=== PATIENT | female | born 1995 | race Caucasian/White ===

== ENCOUNTER → 2021-09-17 00:37 | Outpatient (CLI) | payer OTHER, SELFPAY ==
[2021-09-17 18:00] LABS: SARS-CoV-2 RNA PCR Negative (Negative)
== END ==
PROVIDERS: Visit Provider Surgery Plastic and Reconstructive Surgery
DX: Z01.812 Encounter for preprocedural laboratory examination (principal); Z20.822 Contact with and (suspected) exposure to COVID-19
CPT/HCPCS: C9803; U0003; U0005

== ENCOUNTER 2021-09-17 07:38 | Outpatient (CLI) | payer SELFPAY ==
--- NOTE | 2021-09-17 08:24 | ECG_ITS ---
Measurements Intervals [place] Rate: 54 P: 23 [place]: 139 QRS: 55 QRSD: 87 T: 42 QT: 424 QTc: 405 Interpretive Statements SINUS BRADYCARDIA WITH MARKED SINUS ARRHYTHMIA BORDERLINE ECG Electronically Signed On 09-17-2021 12:07:53 [employer] by Beto Bronson D.O.
[2021-09-17 08:47] LABS: Hematocrit 39.3 % (37.0-47.0); Hemoglobin 12.9 g/dL (12.0-15.0)
== END 2021-09-17 07:39 | disposition home or self-care (01) ==
LOC: ANHLAB 07:39
PROVIDERS: Visit Provider Anesthesiology
DX: Z01.818 Encounter for other preprocedural examination (principal); N64.82 Hypoplasia of breast
CPT/HCPCS: 36415; 85014; 85018; 93005

== ENCOUNTER 2024-01-21 15:09 | Outpatient (CLI) | payer OTHER, SELFPAY ==
--- NOTE | 2024-01-21 15:30 | ECG_ITS ---
SEE SCANNED COPY FOR CONFIRMED REPORT MTDD
[2024-01-21 15:47] LABS: Hematocrit 38.7 % (37.0-47.0); Hemoglobin 12.5 g/dL (12.0-15.0)
== END 2024-01-21 15:10 | disposition home or self-care (01) ==
LOC: ANHSURGERY 15:15
PROVIDERS: Anesthesiology; Visit Provider Surgery Plastic and Reconstructive Surgery
DX: Z01.818 Encounter for other preprocedural examination (principal); Z41.1 Encounter for cosmetic surgery
CPT/HCPCS: 36415; 85014; 85018; 93005

== ENCOUNTER 2024-01-22 00:54 | Day surgery (SDC) | payer OTHER, SELFPAY ==
[2024-01-10 12:25] VITALS: BMI 25.0
--- NOTE | 2024-01-10 12:30 | PC.NURSE ---
Report to the Outpatient Waiting Room, entrance under the green pavilion located off [facility], at time 6:00 on date 01/22/24. Planned Procedure Time: 7:30. Time changes happen often and if your time is changed the preop area will call you the afternoon before. - You and your visitor will be asked to self-screen and do not enter if you have any COVID symptoms. - A mask is optional within the hospital at this time. Patients may have clear liquids (water, carbonated beverages, clear teas, apple juice) until 3 hours prior to surgery with a maximum of 20 ounces. - No food from midnight until time of surgery Take the following medications with a SIP of water the morning of surgery: PROZAC DO NOT STOP ANY OF YOUR OTHER PRESCRIPTION MEDICATIONS PRIOR TO SURGERY ?EXCEPT THE FOLLOWING Medications to discontinue per physician: VITAMINS Date to take last dose: 01/18/24 Please no make-up, nail montserratian, hairspray, perfume, deodorant, or body powder the day of surgery. No jewelry (including any body piercings) or valuables the day of surgery, leave them at home. Please take a shower or bath the night before, or the morning of, surgery with an antibacterial soap. Wear comfortable, loose fitting clothing. - Jewelry must be removed prior to entering the operating room. Rings and piercings that are not removed may be cut off. - The hospital will not accept responsibility for valuables. - Please leave all valuables, including medications, at home the day of surgery. If you are going home after surgery, a licensed rivet driver must drive you home. - NO public transportation without another adult if you receive anesthesia. - We recommend that an adult stay with you for 24 hours following discharge. - We also recommend that you do not drive, make important decision, drink alcoholic beverages, or take any drugs that were not prescribed by your health care provider for at least 24 hours after your discharge time. Follow any additional instructions given to you from your surgeon. If you or anyone in your household have experienced Covid symptoms in the past week, please notify your surgeon or the nurse liaison at the phone number below for possible testing. Telephone instructions given to PT - TITUS and asked if any additional questions and then verbalized understanding. Patient advised to call surgeon office or pre surgery nurse liaison [phone] if any additional questions.
[2024-01-22] VITALS (11 sets, daily range): BP systolic 102–130; BP diastolic 56–79; PULSE 75–106; RESP 15–19; TEMP 36.2–36.4; O2SAT 96–100
[2024-01-22] MEDS: LACTATED RINGERS 1,000 ML 30 ML IV CONT ×2 (06:20→13:09)
[2024-01-22 06:31] LABS: Urine Cotinine NEGATIVE
--- NOTE | 2024-01-22 07:17 | WPDHPUPDATE1 ---
History and Physical Update Update Date/Time: 01/22/24 07:17 History and Physical has been reviewed, including an updated exam of the patient. There are NO changes in the patient's condition. Risks, benefits, and alternatives have been discussed and questions answered. Patient agrees to proceed with procedure.
--- NOTE | 2024-01-22 07:17 | W.PM.PROC2 ---
Procedure Note - Detailed Date of Procedure 01/22/24 Pre-op Diagnosis Micromastia, Skin Laxity Post-op Diagnosis Same Procedure Performed 1. Bilateral augmentation mammaplasty 2. Suction lipectomy lateral breast / chest 3. Progressive tension abdominoplasty with suction lipectomy Surgeon Fredi Watson MD Anesthesia General Findings Bilateral Rohini Diehlira SoftTouch Implants Right - REF# [id number] SN [id number] Left - REF# [id number] SN [id number] Lipoaspirate: 3,100 cc Tissue removed: 1,528 grams Description of Procedure They are here today for the above procedures. Previously and again today the risks, benefits, alternatives were discussed in extensive detail. I wanted them to be very realistic about the risks involved as well as expectations. We discussed aftercare and what to monitor for. I was very upfront about the risks of wound breakdown leading to loss of skin, open wounds, and need for additional procedures with permanent abdominal deformity. We discussed DVT/PE risks and management. Made sure answered all of their questions to their satisfaction today and consent was obtained. They were marked in the preoperative holding area with their verification. The patient was taken to the operating room. Anesthesia was provided by anesthesiology. A Haywood catheter was started. Placed prone on the operating room table with care taken to protect from injury. Prepped and draped in a standard sterile fashion. A surgical time-out was taken. Stab incisions were made and tumescent solution was infiltrated. Once adequate time was allowed for hemostasis a 5mm basket and 3mm multi hole cannula were utilized to complete suction lipectomy based on S.A.F.E. technique in multiple planes and passes. Suction lipectomy continued to result based on pre-operative planning, intra-operative observation, and rolling pinch test which were in full agreement. Patient was then placed supine with care taken to protect from injury. Lateral chest wall / breast suction lipectomy She was prepped and draped in a standard sterile fashion. Stab incisions were made and tumescent solution was infiltrated. Once adequate time was allowed for hemostasis a 5mm basket and 3mm multi hole cannula were utilized to complete suction lipectomy based on S.A.F.E. technique in multiple planes and passes of lateral chest / breast. Suction lipectomy continued to result based on pre-operative planning, intra-operative observation, and rolling pinch test which were in full agreement. Breast Tegaderm nipple Wiley were placed. A 15 blade used to make an incision along the inframammary fold. Dissection was continued at 45 degree angle until the chest wall as identified. I incised the pectoralis major along its inferior border and completely released the inferior border leaving the medial border intact. I created a subpectoral pocket in the appropriate dimensions based on our preoperative planning for the implant. I then copiously irrigated with saline solution and verified a strict hemostasis. Next the use a triple antibiotic and Betadine containing solution to irrigate the pocket. I washed my gloves with the triple antibiotic and Betadine solution. We washed the implant immediately upon opening it with this solution and only opened it when we needed it. I used implant funnel and no-touch technique. The implant was introduced into the pocket using the funnel. Having verified positioning of the implant this was closed using 2-0 PDS followed by 3-0 Monocryl in a running subcuticular 4-0 Monocryl followed by tissue glue. Abdomen I placed the patient in a flexed position to verify the upper and lower markings would reach. I then placed supine. A thorough abdominal examination was completed. Stab incisions were made and tumescent solution infiltrated. Stab incisions were made and tumescent solution was infiltrated. Once adequate time was allowed for hemostasis a 5mm basket
--- NOTE | 2024-01-22 07:20 | P.PNAN_ITS ---
Anes - Initial Pre Proc Eval Procedure: Operation Date: 01/22/24 07:30 Proposed Procedures p Bilateral Breast Augmentation - Fredi Watson MD s Liposuction of Lateral Breast - Fredi Watson MD s Abdominoplasty with Liposuction - Fredi Watson MD Date/Time: 01/22/24 07:20 Surgeon: Fredi Watson MD Pre Op Diagnosis: Micromastia, Skin Laxity Patient Data Age: 28 Gender: F Height: 1.65 m Weight: 85.6 kg Last Vital Signs Temp 97.6 F 01/22/24 06:01 Pulse 75 01/22/24 06:01 Resp 16 01/22/24 06:01 BP 102/75 01/22/24 06:01 Pulse Ox 100 01/22/24 06:01 O2 Del Method Room Air 01/22/24 06:01 Allergies Allergy/AdvReac Type Severity Reaction Status Date / Time cefaclor Allergy Unknown vomiting, Verified 01/22/24 06:42 NAUSEA amoxicillin [From Augmentin] AdvReac Unknown vomiting, Verified 01/22/24 06:42 NAUSEA clavulanic acid AdvReac Unknown VOMITING, Verified 01/22/24 06:42 [From Augmentin] NAUSEA Home Medications Medication Instructions Recorded Confirmed Type multivitamin with minerals 1 tablet PO DAILY 09/15/21 01/22/24 History (Hair,Skin and Nails tablet) fluoxetine 20 mg capsule (Prozac) 20 mg PO DAILY 01/10/24 01/22/24 History Laboratory Tests 01/22/24 06:04 Cotinine Negative Patient hx anesthesia problems: post op nausea/vomiting Family hx anesthesia problems: none Results Review: All pre-operative results and documents have been reviewed as part of the pre- operative evaluation. [facility] Surgical History Surgical History H/O hand surgery H/O knee surgery History of Hx of foot surgery Social History Social History Smoking status: Never smoker Alcohol intake: current Alcohol use details: RARE Substance use: never Substance use type: does not use Living arrangements: with family Additional living arrangements comments: MOTHER Spiritual care concerns: No Anes - Eval Final PreProcedure Day of Procedure 01/22/24 07:20 Patient weight: obese Heart: regular rate and rhythm Lungs: clear to auscultation Airway: Mallampati scale class II Neurological: alert and oriented Last oral intake: >/= 8 hours ASA classification: II Emergent: no Anesthetic plan: proceed Anesthesia type and monitoring: general ETT and standard monitoring Results Review: All pre-operative results and documents have been reviewed as part of the pre- operative evaluation. Informed Consent: The patient's anesthetic plan and its attendant risks and benefits were discussed with the patient/family/POA. Questions were solicited and answers provided to the satisfaction of the patient/family/POA.
--- NOTE | 2024-01-22 07:24 | PM.IMHP ---
H&P: HPI History of Present Illness Date/Time: 01/22/24 07:24 Chief Complaint: Bilateral breast micromastia, localized adiposity, skin laxity. Narrative: She is here today interested in bilateral breast augmentation, lateral breast suction lipectomy, progressive tension abdominoplasty with suction lipectomy. Review of Systems Review of Systems: All systems reviewed & are unremarkable except as noted in HPI and below PMFSH Surgical History Surgical History H/O hand surgery H/O knee surgery History of Hx of foot surgery Social History Social History Smoking status: Never smoker Alcohol intake: current Alcohol use details: RARE Substance use: never Substance use type: does not use Living arrangements: with family Additional living arrangements comments: MOTHER Spiritual care concerns: No Meds Home Medications and Allergies Home Medications Medication Instructions Recorded Confirmed Type multivitamin with minerals 1 tablet PO DAILY 09/15/21 01/22/24 History (Hair,Skin and Nails tablet) fluoxetine 20 mg capsule (Prozac) 20 mg PO DAILY 01/10/24 01/22/24 History Allergies Allergy/AdvReac Type Severity Reaction Status Date / Time cefaclor Allergy Unknown vomiting, Verified 01/22/24 06:42 NAUSEA amoxicillin [From Augmentin] AdvReac Unknown vomiting, Verified 01/22/24 06:42 NAUSEA clavulanic acid AdvReac Unknown VOMITING, Verified 01/22/24 06:42 [From Augmentin] NAUSEA Vital Signs Vital Signs - 24 hr 01/22/24 06:01 Temperature 36.4 C Pulse Rate 75 Respiratory Rate 16 Blood Pressure 102/75 Pulse Oximetry 100 Oxygen Delivery Room Air Exam Narrative: Alert & Oriented NOD Respiratory unlabored Assessment and Plan Assessment and plan (1) Micromastia: Code(s): N64.82 - Hypoplasia of breast Status: Acute Assessment and Plan: She would like to proceed with bilateral breast augmentation, lateral breast suction lipectomy, progressive tension abdominoplasty with suction lipectomy. Risks, benefits, alternatives were discussed in extensive detail. I want to be very realistic about the risks involved as well as expectations. Reviewed consent in detail. Discussed aftercare and what to monitor for. Made sure I answered all questions answered to satisfaction and consent obtained. (2) Skin laxity: Code(s): L57.4 - Cutis laxa senilis Status: Acute (3) Localized adiposity: Code(s): E65 - Localized adiposity Status: Acute
[2024-01-22] MEDS: LACTATED RINGERS IRRIG 1,000 ML, LIDOCAINE HCL 1% LOCAL INJ 50 ML, EPINEPHrine HCL INJ ... INFILTRATE (07:32)
[2024-01-22] MEDS: TRANEXAMIC ACID 1,000MG/ISO100 1,000 MG/100 ML BAG 200 MG IVPB (07:32)
[2024-01-22] MEDS: ceFAZolin 2 GM/D5W 50 ML 2 GM/50 ML BAG IVPB (07:32)
[2024-01-22] MEDS: BUPIVACAINE/EPINEPHRINE 0.5% 30 ML VIAL 60 ML INFILTRATE (07:32)
[2024-01-22] MEDS: NACL 0.9% IRRIG POUR BOTTLE 900 ML, GENTAMICIN SULFATE INJ 160 MG, CLINDAMYCIN PHOS INJ... IRRIGATION (07:32)
[2024-01-22] MEDS: ceFAZolin SODIUM 1 GM VIAL IV PUSH (11:33)
[2024-01-22] MEDS: SCOPOLAMINE 1 MG PATCH 1 PATCH TRANSDERM (11:49)
[2024-01-22] MEDS: fentaNYL CITRATE INJ (*CRX) 100 MCG/2 ML VIAL 25 MCG IV PUSH ×6 (13:58→15:00)
[2024-01-22] MEDS: oxyCODONE HCL (*CRX) 5 MG TAB IR PO (14:47)
== END 2024-01-22 15:22 | disposition home or self-care (01) ==
PROVIDERS: Visit Provider Surgery Plastic and Reconstructive Surgery
PROC: (CPT 19325; principal; 2024-01-22 07:30)
PROC: (CPT 15877; 2024-01-22 07:30)
PROC: (CPT 19325; 2024-01-22 07:30)
DX: Z41.1 Encounter for cosmetic surgery (principal); N64.82 Hypoplasia of breast; L57.4 Cutis laxa senilis; E65 Localized adiposity; E66.9 Obesity, unspecified; Z68.31 Body mass index [BMI] 31.0-31.9, adult
CPT/HCPCS: 19325; 15877; 15830; 15847; 80307; A9270; J0171; J0690; J1100; J1170; J1200; J1580; J2250; J2371; J2405; J2704; J3010; J7120